=== PATIENT | female | born 1965 | race Caucasian/White ===

== ENCOUNTER → 2017-05-04 08:33 | Outpatient (CLI) | payer BC, SELFPAY ==
--- NOTE | 2017-05-04 09:02 | US_ITS ---
US breast cyst asp, US breast LT complete HISTORY: Left breast nodule as seen on recent ultrasound of 03/31/2017 ITS.REASON: ABNORMAL MAMM ORDERING PHYSICIAN: Angie Torres PATIENT AGE: 51 years COMPARISON: 03/31/2017 LEFT BREAST ULTRASOUND COMPLETE: Prebiopsy ultrasound is performed confirming the presence of a persistent solid appearing 11 x 8 mm nodule in the 8:00 region of the left breast. The nodule is slightly hypoechoic with some minimal irregularity of the margins but is well-circumscribed and there is some enhanced through transmission of sound. TECHNIQUE: Following obtaining informed consent, using aseptic technique and local anesthesia with buffered lidocaine, fine-needle aspiration was performed of the nodule of interest using sonographic guidance. 3 passes were made into the nodule with a 25-gauge needle. Specimen was given to cytology. The patient tolerated the procedure well without evidence of immediate complications and left the ultrasound suite in stable condition. CYTOLOGY:Malignant, ductal carcinoma IMPRESSION: Fine needle aspiration of the left breast nodule is positive for ductal carcinoma. Surgical consult recommended
== END ==
PROVIDERS: Family Provider Nurse Practitioner Family; PCP Nurse Practitioner Family; Visit Provider Nurse Practitioner Family
DX: R92.8 Other abnormal and inconclusive findings on diagnostic imaging of breast (principal)
CPT/HCPCS: 19083; 76942

== ENCOUNTER → 2018-05-11 17:04 | Outpatient (CLI) | payer OTHER, SELFPAY ==
--- NOTE | 2018-05-11 17:09 | MM_ITS ---
MM Dig screening mamm BI w/CAD ORDERING PHYSICIAN : Referral Provider, PATIENT AGE: 53 years GENDER: Female COMPARISON: February 2017 bilateral mammogram is only available comparison. INDICATION: Routine screening today Patient states history of lumpectomy left breast with radiation.. Apparently surgery in 2017 after the previous March 2017 ultrasound shouldn't acute TECHNIQUE: Standard CC and MLO images were obtained. R2 CAD reviewed. Actually cc view both breast FINDINGS: Moderately dense breast . Mammography is slight decreased sensitivity in breast of this increased density but we see no significant new findings. No dominant or suspicious mass. No suspicious calcifications. RIGHT BREAST. No significant interval change no new findings. Follow-up in one year recommended LEFT BREAST: There is previously of palpable area at the medial inferior left breast which was seen with ultrasound but not mammography. This apparently was resected in the interval present at or just beneath the skin. The provided history suggest it was was neoplasm. No vascular clips are seen here. No significant interval change. L1 all images are reviewed. Suggest a follow-up bilateral mammogram in not over one year. IMPRESSION: 1.) History suggest interval surgery with resection of the superficial mass at the medial inferior left breast since prior studies February 2017. However, no vascular clips nor remarkable surgical changes are evident here. No additional findings left breast 2.) ... No new areas of concern either breast. 3. Bilateral follow-up in one year be adequate BI-RADS Category: 2 Benign Finding(s) RECOMMENDED FOLLOW-UP: 1YR 1 YEAR FOLLOW-UP (A letter has been sent to the patient regarding results of the study.)
== END ==
PROVIDERS: PCP Nurse Practitioner Family; Visit Provider Radiology Radiation Oncology
DX: Z12.31 Encounter for screening mammogram for malignant neoplasm of breast (principal); C50.312 Malignant neoplasm of lower-inner quadrant of left female breast; K21.0 Gastro-esophageal reflux disease with esophagitis; Z80.3 Family history of malignant neoplasm of breast; Z72.0 Tobacco use
CPT/HCPCS: 77067

== ENCOUNTER → 2019-05-24 10:46 | Outpatient (CLI) | payer OTHER, SELFPAY ==
--- NOTE | 2019-05-24 10:51 | MM_ITS ---
PROCEDURE: MM DIG SCREENING MAMM BI W/CAD and with 3D tomosynthesis CLINICAL INDICATION: SCREENING COMPARISON: [facility] DIG MAMM-SCREEN KELVIN W/CAD from 03/18/2017 [facility] MM Dig screening mamm BI w/CAD from 05/11/2018 TECHNIQUE: Standard CC and MLO images and 3D Tomosinthisis was obtained. R2 CAD reviewed. FINDINGS: Average fibroglandular tissue. No malignant appearing mass or malignant-appearing microcalcification. There are surgical clips in the left axilla. Benign-appearing calcifications IMPRESSION: BI-RAD Category: 1 Negative FOLLOW-UP: 1YR 1 Year Follow-up (A letter has been sent to the patient regarding results of the study.) Dictated by: Axel Acosta MD 05/24/2019 12:13 Electronically signed by Axel Acosta MD in [place] 05/24/2019 12:13
== END ==
PROVIDERS: PCP Nurse Practitioner Family; Visit Provider Nurse Practitioner Family
DX: Z12.31 Encounter for screening mammogram for malignant neoplasm of breast (principal)
CPT/HCPCS: 77063; 77067

== ENCOUNTER → 2021-03-11 08:18 | Outpatient (CLI) | payer OTHER, SELFPAY ==
--- NOTE | 2021-03-11 08:23 | MM_ITS ---
PROCEDURE INFORMATION: Exam: MG Bilateral Screening 3D Mammography Exam date and time: 03/11/2021 8:23 AM Age: 55 years old Clinical indication: Screening exam; Personal history of left breast carcinoma treated with lumpectomy and radiation.. Family history of breast carcinoma. TECHNIQUE: Imaging protocol: Bilateral screening tomosynthesis and 2D mammography including computer-aided detection (CAD) when performed. COMPARISON: 1. MG MM DIG SCREENING MAMM BI W/CAD 05/24/2019 10:52 AM 2. MG [facility] MM Dig screening mamm BI w/CAD 05/11/2018 5:14 PM 3. MG [facility] DIG MAMM-SCREEN KELVIN W/CAD 03/18/2017 3:55 PM FINDINGS: MAMMOGRAPHY: Breast composition: The breasts are extremely dense, which lowers the sensitivity of mammography. Mass: No suspicious masses. Architectural distortion: No suspicious distortion. Calcifications: No suspicious calcifications. Asymmetric density: None. Skin thickening: None. Axillary adenopathy: None. Partially imaged postsurgical changes in the left axilla. IMPRESSION: No mammographic evidence of malignancy. Annual screening is recommended unless otherwise clinically indicated. ASSESSMENT: BI-RADS Category 2: Benign
--- NOTE | 2021-03-11 08:23 | XR_ITS ---
PROCEDURE: XR DEXA AXIAL SKELETON CLINICAL HISTORY: POST MENOPAUSAL COMPARISON: No exams were available for comparison FINDINGS: The right hip BMD is 0.684 with a T-score of -1.5. The left hip BMD is 0.732 with a T-score of -1.7. The lumbar spine BMD is 0.911 with a T-score of -1.2. IMPRESSION: This patient is considered osteopenic according to the World Health Organization criteria. Bone density is between 10 and 25 percent below young normal. Fracture risk is moderate. Treatment is advised. Based on these results a follow-up exam is recommended in 2 year. Dictated by: Axel Acosta MD 03/11/2021 19:17 Axel Acosta MD in [place] 03/11/2021 19:17
== END ==
PROVIDERS: PCP Nurse Practitioner Family; Visit Provider Nurse Practitioner Family
DX: Z12.31 Encounter for screening mammogram for malignant neoplasm of breast (principal); Z13.820 Encounter for screening for osteoporosis; M85.89 Other specified disorders of bone density and structure, multiple sites; C50.312 Malignant neoplasm of lower-inner quadrant of left female breast; K21.00 Gastro-esophageal reflux disease with esophagitis, without bleeding; Z72.0 Tobacco use; Z80.3 Family history of malignant neoplasm of breast
CPT/HCPCS: 77063; 77067; 77080

== ENCOUNTER → 2022-07-27 08:25 | Outpatient (CLI) | payer BC, SELFPAY ==
--- NOTE | 2022-07-27 08:31 | MM_ITS ---
PROCEDURE INFORMATION: Exam: MG Bilateral Screening 3D Mammography Exam date and time: 07/27/2022 8:20 AM Age: 57 years old Clinical indication: Screening examination TECHNIQUE: Imaging protocol: Bilateral Screening tomosynthesis and 2D mammography including computer-aided detection (CAD) when performed. COMPARISON: 1. MG MM DIG SCREENING MAMM BI W/CAD 03/11/2021 8:22 AM 2. MG MM DIG SCREENING MAMM BI W/CAD 05/24/2019 10:52 AM FINDINGS: MAMMOGRAPHY: Breast composition: The breasts are heterogeneously dense, which may obscure small masses. Mass: None. Architectural distortion: None. Calcifications: No suspicious calcifications. Asymmetric density: None. Skin thickening: None. Axillary adenopathy: None. IMPRESSION: No mammographic evidence of malignancy. Annual screening is recommended unless otherwise clinically indicated. ASSESSMENT: BI-RADS Category 1: Negative
== END ==
PROVIDERS: Visit Provider Internal Medicine Hematology & Oncology
DX: Z12.31 Encounter for screening mammogram for malignant neoplasm of breast (principal); C50.312 Malignant neoplasm of lower-inner quadrant of left female breast; Z17.0 Estrogen receptor positive status [ER+]
CPT/HCPCS: 77063; 77067

== ENCOUNTER 2024-12-11 21:10 | Emergency (ER) | payer BC, SELFPAY ==
[2024-12-11 22:01] VITALS: BP 162/91; PULSE 100; RESP 16; TEMP 36.6; O2SAT 95; BMI 20.8
--- NOTE | 2024-12-11 22:19 | CT_ITS ---
PROCEDURE INFORMATION: Exam: CT Head Without Contrast Exam date and time: 12/11/2024 10:35 PM Age: 59 years old Clinical indication: Injury or trauma; Other: Face trauma; Blunt trauma (contusions or hematomas); Additional info: Facial trauma, headache TECHNIQUE: Imaging protocol: Computed tomography of the head without contrast. Radiation optimization: All CT scans at this facility use at least one of these dose optimization techniques: automated exposure control; mA and/or kV adjustment per patient size (includes targeted exams where dose is matched to clinical indication); or iterative reconstruction. COMPARISON: CT FACIAL BONES WO CON 12/11/2024 10:37 PM FINDINGS: Brain: No acute intracranial hemorrhage. No abnormal extra-axial fluid collection. No midline shift or mass effect. No acute large territory infarct. Cerebral ventricles: No ventriculomegaly. Paranasal sinuses: Mild mucosal thickening in the left maxillary sinus. Tiny mucous retention cyst or polyp in the right maxillary sinus. No air-fluid levels. Mastoid air cells: Trace right mastoid effusion, nonspecific. Orbital cavities: No acute intraorbital abnormality. Globes are intact and symmetric. Bones: No acute fracture. Soft tissues: Soft tissue swelling/hematoma over the left forehead. IMPRESSION: 1. No acute intracranial abnormality identified. 2. Soft tissue swelling/hematoma over the left forehead.
--- NOTE | 2024-12-11 22:19 | CT_ITS ---
PROCEDURE INFORMATION: Exam: CT Maxillofacial Without Contrast Exam date and time: 12/11/2024 10:37 PM Age: 59 years old Clinical indication: Injury or trauma; Blunt trauma (contusions or hematomas); Forehead and nose; Hit in nose/forehead area with a baseball; Additional info: Face trauma, possible nasal bone fracture TECHNIQUE: Imaging protocol: Computed tomography of the face without contrast. Radiation optimization: All CT scans at this facility use at least one of these dose optimization techniques: automated exposure control; mA and/or kV adjustment per patient size (includes targeted exams where dose is matched to clinical indication); or iterative reconstruction. COMPARISON: CT HEAD/BRAIN WO CON 12/11/2024 10:35 PM FINDINGS: Paranasal sinuses: Small mucous retention cyst or polyp in the right maxillary sinus. Minimal mucosal thickening in the left maxillary sinus. No air-fluid levels. Orbital cavities: No acute intraorbital abnormality. Globes are intact and symmetric. Bones: No acute fracture. Soft tissues: Prominent soft tissue swelling/hematoma over the left forehead/supraorbital region. IMPRESSION: 1. Prominent soft tissue swelling/hematoma over the left forehead/supraorbital region. 2. No acute intraorbital abnormality. 3. No acute fracture.
--- NOTE | 2024-12-11 22:31 | PC.NURSE ---
pt in ct
[2024-12-11] MEDS: IBUPROFEN 600 MG TABLET PO (22:49)
--- NOTE | 2024-12-11 22:56 | PC.NURSE ---
Lac on nose cleansed, no bleeding
[2024-12-11 22:58] LABS: Bilirubin,Urine Negative (Negative); Color,Urine YELLOW (Yellow); Glucose,Urine (UA) Negative (Negative); Ketones,Urine Negative (Negative); Leukocyte Esterase,Urine NEGATIVE (Negative); PH,Urine 7.0 (5.0-8.5); Protein,Urine NEGATIVE (Negative); Specific Gravity, Urine 1.015 (1.005-1.030); Urobilinogen,Urine 0.2 EU/dl (0.2)
--- NOTE | 2024-12-11 23:09 | ED_ITS ---
Discharge Plan Disposition Patient Disposition: Home, Self-Care Referrals Follow up/Referrals: Provider,Referral, [Primary Care Provider, Medical] - See instructions Activity Restrictions/Add. Instructions Additional Instructions/Restrictions: You can take 600 mg of ibuprofen and 1000 mg of Tylenol every 6 hours as needed to help with pain. You will likely have bruising over the next several days to weeks in the left forehead that may spread down your face. This is to be expected. Clinical Impressions Clinical Impression: Traumatic hematoma of forehead Print Language Print Language: Chadian Discharge ED Provider: Deven Aguayo General Adult HPI General Chief complaint: Head Injury Stated complaint: AO 12/11/24 2100 laceration forehead hit softball Time Seen by Provider: 12/11/24 22:25 Mode of Arrival: Ambulatory Source of Information: Patient Description of Symptoms (Recalled from ER Triage Doc. by RN): Patient was behind dugout at softball game, ball was hit foul and went over fence and hit her in the head History of Present Illness HPI narrative: Saundra Dugan is a 59y female with no significant past medical history who presents to the emergency department for complaints of a mild headache and injury to her face after getting hit in the head with a softball. Patient states that she was in the stands when a fellow ball hit her on the left forehead, knocking her glasses off. She states that she never lost consciousness but did feel dazed afterwards. She does complain of a mild headache but denies any vision changes. She notes that she has a small cut to her nasal bridge from her glasses. She has a bump on the left side of her forehead that she has been putting ice on. She has not taken any medications prior to arrival. She is not on any blood thinning medications. Related Data Allergies Allergy/AdvReac Type Severity Reaction Status Date / Time Corticosteroid Allergy Unknown Uncoded 04/12/17 14:51 Erythromycin Allergy Unknown Uncoded 04/12/17 14:51 From Penicillin V Potassium Allergy Unknown Uncoded 04/12/17 14:51 Hydrocortisone Allergy Unknown Uncoded 04/12/17 14:51 Macrolide/Antibacterial Allergy Unknown Uncoded 04/12/17 14:51 Penicillin Allergy Unknown Uncoded 04/12/17 14:51 [facility] Disclaimer: The information contained in this section may have been updated after the patient was seen, as this information can be updated by other users. Social History Smoking Status: Never smoker alcohol intake: never current occupational status: employed Travel in the last 8 weeks?: None ROS Obtained: Yes Systems reviewed as appropriate & no additional complaints except as documented Physical Exam General General appearance: alert and in no apparent distress Head Head exam: other (Hematoma to left forehead with mild tenderness but no depressed fractures. Small abrasion to bridge of nose without active bleeding. Some mild tenderness in this area.) Eye Eye exam: Present normal appearance and PERRL ENT ENT exam: Present normal external ear exam Neck Neck exam: Present full ROM Chest Chest inspection: Present symmetric chest wall rise Respiratory Respiratory exam: Present normal lung sounds bilaterally; Absent respiratory distress, wheezes or stridor Cardiovascular Cardiovascular exam: Present regular rate and normal rhythm Abdominal Exam Abdominal exam: Present soft; Absent tenderness or guarding Extremities Exam Extremities exam: Present normal inspection Back Exam Back exam: Present normal inspection Neurological Exam Neurological exam: Present alert and oriented X3 Psychiatric Psychiatric exam: Present normal affect Skin Skin exam: Present warm and dry Medical Decision Making Medical Records Screening: Per USPSTF and CDC recommendations, given the prevalence of disease in our region, it is our hospital?s policy to screen for HIV and viral Hepatitis for all patients aged 18 and over and those with ongoing risk factors. Oniel Inquiry Pt receiving controlled substance: No Vital Signs: 12/11/24 22:01 12/11/24 23:43 Temperature 97.9 F 98.1 F Temperature Source Oral Oral Pulse Rate 90 Pulse Rate [Right Radial] 100 H Respiratory Rate 16 16 Blood Pressure 158/88 H Blood Pressure [Right Arm] 162/91 H Blood Pressure Mean [Right Arm] 114 Blood Pressure Source [Right Arm] Automatic Cuff Blood Pressure Position [Right Arm] Sitting 02 Sat by Pulse Oximetry 95 Oxygen Delivery Method Room Air Room Air Lab Data Lab Results 12/11/24 22:42: Urine Color Yellow, Urine Appearance Clear, Urine pH 7.0, Ur Specific [place] 1.015, Urine Protein Negative, Urine Glucose (UA) Negative, Urine Ketones Negative, Urine Blood Trace-l, Urine Nitrate Negative, Urine Bilirubin Negative, Urine Urobilinogen 0.2, Ur Leukocyte Esterase Negative Orders (Tests/Meds): ED MEDICATIONS Discontinued Medications Generic Name Dose Route Start Last Admin Trade Name Freq PRN Reason Stop Dose Admin Ibuprofen 600 mg 12/11/24 22:19 08/19/25 22:49 Ibuprofen 600 Mg Tablet PO 12/11/24 22:20 600 mg ONCE ONE Administration ORDERS Category Date Time Status CT facial bones wo con Stat Cat Scan 12/11/24 22:[address] head/brain wo con Stat Cat Scan 12/11/24 22:19 Completed UA/RFX Microscopic Routine Lab 12/11/24 22:42 Completed Medical Decision Narrative: Saundra Dugan is a 59y female with no significant past medical history who presents to the emergency department for complaints of a mild headache and injury to her face after getting hit in the head with a softball. Patient states that she was in the stands when a fellow ball hit her on the left forehead, knocking her glasses off. She states that she never lost consciousness but did feel dazed afterwards. She does complain of a mild headache but denies any vision changes. She notes that she has a small cut to her nasal bridge from her glasses. She has a bump on the left side of her forehead that she has been putting ice on. She has not taken any medications prior to arrival. She is not on any blood thinning medications. On arrival, patient is hemodynamically stable, in no acute respiratory distress, breathing comfortably on room air with appropriate oxygen saturation. Physical exam, stated above, revealed an overall well-appearing female in no distress. GCS 15. She has a hematoma and some tenderness to her left forehead but she is currently putting an ice pack on. She also has a small abrasion to the bridge of her nose without active bleeding. Some mild tenderness in this area as well. Physical exam is otherwise unremarkable. Differential diagnosis includes, but is not limited to: Intracranial hemorrhage, skull fracture, facial bone fracture, nasal bone fracture, among others. The most morbid conditions were considered and workup was based on these. I spoke with patient, and she states that she does not like to take medications normally but is willing to take a 6 out of milligram ibuprofen. This was administered orally at this time. Will obtain CT imaging of the head and facial bones without contrast to rule out pathology as stated above. CT imaging was interpreted by me personally. No intracranial hemorrhage, mass or midline shift. She does have hematoma to the left forehead but no skull fractures. No nasal bone fractures. No other facial bone fractures. See radiology report for final details. Given this, is felt the patient is appropriate discharge at this time. She was made aware that she will likely be sore over the next few days and that the bruising will likely worsen and spread down her face. She instructed to take Tylenol and ibuprofen to help with symptoms and use ice packs to help reduce swelling. Return precautions were given. All questions were answered. She demonstrated understanding and was in agreement this plan. She was then discharged from the emergency department in stable condition. Critical Care Critical Care Time Critical Care Time: No
[2024-12-11 23:43] VITALS: BP 158/88; PULSE 90; RESP 16; TEMP 36.7; O2SAT 95
== END 2024-12-11 23:47 | disposition home or self-care (01) ==
PROVIDERS: Emergency Provider Student in an Organized Health Care Education/Training Program
DX: S00.83XA Contusion of other part of head, initial encounter (principal); S00.31XA Abrasion of nose, initial encounter; W21.07XA Struck by softball, initial encounter
CPT/HCPCS: 70450; 70486; 81003; 99282; 99284